=== PATIENT | female | born 2000 | race Hispanic/Latino ===

== ENCOUNTER 2021-01-18 12:22 | Inpatient (IN) | payer MEDICAID ==
[~2021-01-18] VITALS: Ht 154.9 cm; Wt 101.6 kg
[2021-01-18] MEDS: LACTATED RINGERS 1000ML 1,000 ML IV PRN ×3 (12:40→23:46)
[2021-01-18 12:54] LABS: HEMATOCRIT 33.7 % (36-48); MEAN CORPUSCULAR HEMOGLOBIN 26.7 pg (27.0-33.0); MEAN CORPUSCULAR HGB CONC 32.9 g/dL (32.0-36.0); RED BLOOD CELL COUNT(AUTO) 4.16 MIL/uL (4.00-5.50); RED CELL DISTRIBUTION WIDTH 14.6 % (11.0-15.5); WHITE BLOOD COUNT (AUTO) 12.9 K/uL (4.8-10.8)
[2021-01-18] MEDS ORDERED: PROMETHAZINE HCL 25 MG/ML 1ML AMPULE IM PRN (13:00)
[2021-01-18] MEDS ORDERED: NALOXONE HCL 0.4 MG/1 ML ML IV PRN (13:00)
[2021-01-18] MEDS ORDERED: MEPERIDINE-PF 50 MG/ML SYG IVP PRN (13:00)
[2021-01-18] MEDS ORDERED: EPHEDRINE SULFATE 50 MG/ML AMPULE IVP PRN (13:00)
[2021-01-18] MEDS ORDERED: ROPIVACAINE 0.2% 100ML VIAL 100 ML EP SCH (13:00)
[2021-01-18] MEDS ORDERED: LACTATED RINGERS 500 ML 500 ML IV PRN (13:00)
[2021-01-18 13:07] LABS: APPEARANCE,URINE Clear (CLEAR); BILIRUBIN,URINE Negative (NEGATIVE); COLOR,URINE Yellow (YELLOW); GLUCOSE, URINE (UA) Negative (NEGATIVE); KETONES,URINE Trace mg/dL (NEGATIVE); LEUKOCYTE ESTERASE ,URINE Trace (NEGATIVE); NITRATE,URINE Negative (NEGATIVE); OCCULT BLOOD,URINE Negative (NEGATIVE); PH,URINE 7.5 (5.0-8.0); PROTEIN,URINE POS 1+ mg/dL (NEGATIVE)
[2021-01-18 13:21] LABS: BACTERIA,URINE Rare /HPF (None Seen); RBC,URINE 0-1 /HPF (0-1); SQUAMOUS EPITHELIAL CELL,UR Moderate /HPF (0-2)
[2021-01-18] MEDS ORDERED: AMPICILLIN 2GM+NS 100ML 100 ML IV SCH (13:45)
[2021-01-18] MEDS: OXYTOCIN-LR 20 UNITS/1000 ML 1,000 ML IV SCH ×2 (14:25→16:00)
[2021-01-18] MEDS ORDERED: MISOPROSTOL 200 MCG TABLET ONE (14:31)
[2021-01-18] MEDS ORDERED: METHYLERGONOVINE MALEATE 0.2 MG/1 ML ML ONE (14:56)
[2021-01-18] MEDS ORDERED: CARBOPROST TROMETHAMINE 250 MCG/ML AMP IM ONE ×2 (14:57→15:12)
[2021-01-18 15:29] LABS: BASOPHILS % (AUTO) 0.4 % (0.0-5.0); EOSINOPHILS % (AUTO) 0.4 % (0.0-8.0); HEMATOCRIT 29.7 % (36-48); LYMPHOCYTES % (AUTO) 11.1 % (21.0-51.0); MEAN CORPUSCULAR HEMOGLOBIN 26.4 pg (27.0-33.0); MEAN CORPUSCULAR HGB CONC 32.3 g/dL (32.0-36.0); MEAN CORPUSCULAR VOLUME 81.8 fL (79-99); MONOCYTES % (AUTO) 5.8 % (3.0-13.0); NEUTROPHILS % (AUTO) 81.8 % (40.0-77.0); PLATELET COUNT (AUTO) 320 K/uL (130-400); RED BLOOD CELL COUNT(AUTO) 3.63 MIL/uL (4.00-5.50); RED CELL DISTRIBUTION WIDTH 14.6 % (11.0-15.5); WHITE BLOOD COUNT (AUTO) 14.4 K/uL (4.8-10.8)
[2021-01-18] MEDS ORDERED: CEFAZOLIN SODIUM 1 GM VIAL ONE (15:43)
[2021-01-18] MEDS ORDERED: BENZOCAINE/LANOLIN/ALOE VERA 60 ML AEROSOL TP PRN (16:00)
[2021-01-18] MEDS ORDERED: MEASLES/MUMPS/RUBELLA VACCINE, LIVE 0.5 ML/VIAL SQ PRN (16:00)
[2021-01-18] MEDS ORDERED: OXYTOCIN-LR 20 UNITS/1000 ML 1,000 ML IV SCH (16:00)
[2021-01-18] MEDS ORDERED: LANOLIN 30GM OINTMENT TP PRN (16:00)
[2021-01-18] MEDS ORDERED: WITCH HAZEL 1 PAD TP PRN (16:00)
[2021-01-18] MEDS ORDERED: ACETAMINOPHEN WITH CODEINE 1 TAB TAB PO PRN (16:00)
[2021-01-18] MEDS ORDERED: DIPH,PERTUSS(ACELL),TET VAC/PF 0.5 ML VIAL IM PRN (16:00)
[2021-01-18] MEDS ORDERED: ACETAMINOPHEN 325 MG TAB PO PRN (16:00)
[2021-01-18] MEDS ORDERED: AMPICILLIN 1GM+NS 50ML 50 ML IV SCH (17:00)
[2021-01-18] MEDS: DOCUSATE SODIUM 100 MG CAP PO SCH (21:44)
[2021-01-18] MEDS: IBUPROFEN 600 MG TABLET PO PRN (21:45)
[2021-01-18 22:02] LABS: HEMATOCRIT 22.2 % (36-48); MEAN CORPUSCULAR HEMOGLOBIN 27.1 pg (27.0-33.0); MEAN CORPUSCULAR HGB CONC 33.3 g/dL (32.0-36.0); MEAN CORPUSCULAR VOLUME 81.3 fL (79-99); RED BLOOD CELL COUNT(AUTO) 2.73 MIL/uL (4.00-5.50); RED CELL DISTRIBUTION WIDTH 14.7 % (11.0-15.5); WHITE BLOOD COUNT (AUTO) 21.2 K/uL (4.8-10.8)
[2021-01-18] MEDS: CEFAZOLIN 3GM /D5W 100ML 100 ML IV SCH (23:46)
[2021-01-19] VITALS (7 sets, daily range): BP systolic 94–127; BP diastolic 50–75
[2021-01-19] MEDS: LACTATED RINGERS 1000ML 1,000 ML IV PRN ×2 (03:42→14:22)
[2021-01-19] MEDS: IBUPROFEN 600 MG TABLET PO PRN (03:42)
[2021-01-19 06:57] LABS: MEAN CORPUSCULAR HEMOGLOBIN 26.9 pg (27.0-33.0); MEAN CORPUSCULAR HGB CONC 32.9 g/dL (32.0-36.0); MEAN CORPUSCULAR VOLUME 81.7 fL (79-99); PLATELET COUNT (AUTO) 193 K/uL (130-400); RED BLOOD CELL COUNT(AUTO) 2.08 MIL/uL (4.00-5.50); RED CELL DISTRIBUTION WIDTH 14.8 % (11.0-15.5); WHITE BLOOD COUNT (AUTO) 16.1 K/uL (4.8-10.8)
[2021-01-19 07:17] LABS: HEPATITIS Bs ANTIGEN SCREEN P Negative (Negative)
[2021-01-19] MEDS: CEFAZOLIN 3GM /D5W 100ML 100 ML IV SCH ×2 (07:45→19:05)
[2021-01-19] MEDS: DOCUSATE SODIUM 100 MG CAP PO SCH ×2 (09:00→20:04)
[2021-01-19] MEDS ORDERED: PREN-196 PO (23:40)
[2021-01-20] MEDS: CEFAZOLIN 3GM /D5W 100ML 100 ML IV SCH ×2 (03:11→11:03)
[2021-01-20 03:15] VITALS: BP 113/69
[2021-01-20 07:21] VITALS: BP 124/63
[2021-01-20 07:51] LABS: HEMATOCRIT 22.8 % (36-48); MEAN CORPUSCULAR HEMOGLOBIN 27.3 pg (27.0-33.0); MEAN CORPUSCULAR VOLUME 85.4 fL (79-99); RED BLOOD CELL COUNT(AUTO) 2.67 MIL/uL (4.00-5.50); RED CELL DISTRIBUTION WIDTH 15.7 % (11.0-15.5); WHITE BLOOD COUNT (AUTO) 9.2 K/uL (4.8-10.8)
[2021-01-20] MEDS: DOCUSATE SODIUM 100 MG CAP PO SCH (08:54)
[2021-01-20] MEDS: IBUPROFEN 600 MG TABLET PO PRN (08:55)
[2021-01-20 11:59] VITALS: BP 132/87
== END 2021-01-20 15:30 | disposition home or self-care (01) | DRG 541 ==
LOC: LDH 12:22 → WSH 01-19 12:06
PROVIDERS: ADMIT Obstetrics & Gynecology; ATTEND Obstetrics & Gynecology
PROC: 10D17ZZ Extraction of Products of Conception, Retained, Via Natural or Artificial Opening (ICD-10-PCS; 2021-01-18)
PROC: 0UQC7ZZ Repair Cervix, Via Natural or Artificial Opening (ICD-10-PCS; 2021-01-18)
PROC: 10907ZC Drainage of Amniotic Fluid, Therapeutic from Products of Conception, Via Natural or Artificial Opening (ICD-10-PCS; 2021-01-18)
PROC: 10D17ZZ Extraction of Products of Conception, Retained, Via Natural or Artificial Opening (ICD-10-PCS; 2021-01-18)
PROC: 3E0234Z Introduction of Serum, Toxoid and Vaccine into Muscle, Percutaneous Approach (ICD-10-PCS; 2021-01-18)
PROC: 10E0XZZ Delivery of Products of Conception, External Approach (ICD-10-PCS; principal; 2021-01-18 14:55)
PROC: 30233N1 Transfusion of Nonautologous Red Blood Cells into Peripheral Vein, Percutaneous Approach (ICD-10-PCS; 2021-01-19)
DX: O99.214 Obesity complicating childbirth (principal); E66.9 Obesity, unspecified; O99.824 Streptococcus B carrier state complicating childbirth; O71.82 Other specified trauma to perineum and vulva; O72.1 Other immediate postpartum hemorrhage; O71.3 Obstetric laceration of cervix; Z37.0 Single live birth; Z3A.40 40 weeks gestation of pregnancy; Z23 Encounter for immunization
CPT/HCPCS: 36415; 36430; 81001; 85025; 85027; 86592; 86850; 86900; 86901; 86923; 87340; 88307; 90715; A4314; A4351; G0378; J0290; J0330; J0690; J2175; J2210; J2370; J2550; J2590; J2704; J3010; J3490; J7120; P9016